=== PATIENT | female | born 1950 | race African-American/Black ===

== ENCOUNTER 2022-08-16 13:35 | Inpatient (IN) | payer MEDICARE, MEDICAID ==
[~2022-08-16] VITALS: Ht 165.1 cm; Wt 70.1 kg
[2022-08-16] VITALS (14 sets, daily range): BP systolic 99–147; BP diastolic 65–86
[2022-08-16] MEDS ORDERED: aspirin 81mg tab.chew PO ONE (14:00)
[2022-08-16] MEDS ORDERED: fentaNYL/PF 50MCG/1 ML 2ML syringe ONE ×2 (14:07→14:29)
[2022-08-16] MEDS ORDERED: heparin 1,000unit/ml 10ml vial 10 ML ONE (14:07)
[2022-08-16] MEDS ORDERED: midazolam 1 mg/ML 2ml injection ONE ×4 (14:07→15:02)
[2022-08-16] MEDS ORDERED: LIDOcaine 1% 30ml preserv. free vial ONE (14:07)
[2022-08-16] MEDS ORDERED: iohexol 350MG/ML 100ml bottle IV ONE ×2 (14:07→14:59)
[2022-08-16 14:14] LABS: BASOPHILS # (AUTO) 0.1 X10'3 (0-0.2); BASOPHILS % (AUTO) 0.8 % (0-1); EOSINOPHILS # (AUTO) 0.1 X10'3 (0-0.9); HEMATOCRIT 40.7 % (35.0-45.0); HEMOGLOBIN 13.4 g/dl (12.0-16.0); LYMPHOCYTES # (AUTO) 1.2 X10'3 (1.1-4.8); LYMPHOCYTES % (AUTO) 17.7 % (21-51); MEAN CORPUSCULAR HEMOGLOBIN 29.3 PG (27.0-31.0); MEAN CORPUSCULAR HGB CONC 32.9 g/dL (33.0-36.5); MEAN PLATELET VOLUME 8.9 FL (7.4-10.4); MONOCYTES # (AUTO) 0.6 X10'3 (0-0.9); MONOCYTES % (AUTO) 8.8 % (2-12); NEUTROPHILS # (AUTO) 4.7 X10'3 (1.8-7.7); NEUTROPHILS % (AUTO) 71.7 % (42-75); PLATELET COUNT 261 X10'3 (140-440); RED BLOOD COUNT 4.58 X10'6 (4.20-5.60); RED CELL DISTRIBUTION WIDTH 14.2 % (11.5-14.5); WHITE BLOOD COUNT 6.6 X10'3 (4.5-11.0)
[2022-08-16 14:20] LABS: APTT 26 SECONDS (22-32)
--- NOTE | 2022-08-16 14:21 | NUR ---
PT WAS CALLED A STROKE ALERT IN THE LOBBY PRIOR TO TRIAGE WAS BROUGHT TO A ROOM FOR EKG AND SENT TO CT SCAN, MD READ OF EKG WAS STEMI. sTEMI ALERT CALLED PATIENT BROUGHT BACK FROM CT PLACED IN ROOM 15 FOR TRIAGE IV PLACEMENT AND MD AT BEDSIDE FOR EVALUATION. [facility] ARRIVED AND REPEAT EKG PERFORMED AND PT SENT TO [facility].
[2022-08-16 14:22] LABS: ALANINE AMINOTRANSFERASE 13 U/L (12-78); ALBUMIN 3.2 G/DL (3.4-5.0); ALBUMIN/GLOBULIN RATIO 0.7 (1.1-1.5); ALKALINE PHOSPHATASE 140 IU/L (46-116); ANION GAP 12 (8-16); ASPARTATE AMINO TRANSFERASE 21 U/L (10-37); BILIRUBIN,TOTAL 0.4 MG/DL (0.1-1.0); BLOOD UREA NITROGEN 17 MG/DL (7-18); BUN/CREATININE RATIO 15.3 (6.6-38.0); CALCIUM 9.3 MG/DL (8.5-10.1); CHLORIDE 99 MMOL/L (99-107); CREATININE 1.11 MG/DL (0.40-0.90); GLUCOSE 224 MG/DL (70-104); POTASSIUM 3.3 MMOL/L (3.5-5.1); SODIUM 136 MMOL/L (135-145); TOTAL CARBON DIOXIDE 24.7 MMOL/L (24-32); TOTAL PROTEIN 7.8 G/DL (6.4-8.2); eGFR 48 ML/MIN
[2022-08-16] MEDS ORDERED: diphenhydrAMINE 50 mg/ml inj ONE (14:46)
[2022-08-16] MEDS ORDERED: proCHLORperazine 10 MG/2 ml inj ONE (14:51)
[2022-08-16] MEDS ORDERED: metoprolol tartrate 1mg/ml inj IV ONE (15:17)
[2022-08-16] MEDS ORDERED: ticagrelor 90mg tablet ONE (15:21)
[2022-08-16] MEDS ORDERED: aspirin 325mg tablet ONE (15:23)
[2022-08-16] MEDS ORDERED: glucagon, human recombinant 1mg kit SUBCUT PRN (15:55)
[2022-08-16] MEDS ORDERED: MESSAGE TO PHARMACY PO ONE (15:55)
[2022-08-16] MEDS ORDERED: dextrose 50%-water 50ml dispensing syringe IV PRN ×2 (15:55)
[2022-08-16] MEDS ORDERED: acetaminophen 325mg tablet PO PRN (15:55)
[2022-08-16] MEDS ORDERED: potassium Cl 20 mEq SR tablet PO PRN (15:55)
[2022-08-16] MEDS ORDERED: potassium Cl 40MEQ/1/2NS 520ml 520 ML IV PRN (15:55)
[2022-08-16] MEDS ORDERED: ondansetron/PF 4mg/2ml inj IV PRN (15:55)
[2022-08-16] MEDS ORDERED: DEXTROSE 15 GM of carb/4 tabs (each vial/BOTTLE has 4 tablets) PO PRN ×2 (15:55)
[2022-08-16] MEDS ORDERED: magnesium hydroxide 30ml (MOM) UD suspension PO PRN (15:55)
[2022-08-16] MEDS ORDERED: mag hydrox/Alum hydrox/simeth 30ml oral suspension PO PRN (15:55)
[2022-08-16] MEDS ORDERED: magnesium 4gm in 100ml NS 100 ML IV PRN (15:55)
[2022-08-16] MEDS ORDERED: proCHLORperazine 10 MG/2 ml inj IV PRN (16:25)
[2022-08-16] MEDS ORDERED: OXAZEpam 15mg capsule PO PRN (16:25)
[2022-08-16] MEDS ORDERED: HYDROcodone/acetaminophen 10/325mg tab PO PRN (16:25)
--- NOTE | 2022-08-16 16:39 | NUR ---
patient arrived from lab support service tech right groin site soft, no hematoma, bleeding or bruising. Site soft upon palpatation. Distal pulses and sensation intact. Patient having difficulty following directions keeping RLE still and straight. leg immobilizer applied.
[2022-08-16 16:59] LABS: HEMOGLOBIN A1C 6.8 % (4.5-6.2)
[2022-08-16] MEDS ORDERED: temazepam 15mg capsule PO PRN (18:10)
--- NOTE | 2022-08-16 18:17 | NUR ---
Small amount of blood noted on groin dressing about the size of a quarter. No hematoma or bruising distal pulses and sensation intact will continue to monitor closely.
--- NOTE | 2022-08-16 18:17 | NUR ---
[place] documentation: I have reviewed and agree with all interventions, assessments performed and documented by Abdelrahman RICHARD. [facility] Medication Administration: For this medication-pass time frame, all medication were reviewed, dispensed, administered and documented per hospital policy by Abdelrahman RICHARD .
--- NOTE | 2022-08-16 18:38 | NUR ---
Problems reprioritized. Patient report given, questions answered & plan of care reviewed with Eri RICHARD. Small l amount of blood noted at groin site . PT found on side at shift change - must lay flat until 8pm . Pt reoriented.
[2022-08-16] MEDS: ticagrelor 90mg tablet PO SCH (20:04)
[2022-08-16] MEDS: metoprolol tartrate 25mg tablet PO SCH (20:08)
[2022-08-16] MEDS: docusate sod 100mg capsule PO SCH (20:09)
[2022-08-16] MEDS: furosemide 20 MG/2 ML vial IV SCH (20:09)
[2022-08-16] MEDS: potassium Cl 20 mEq SR tablet PO PRN (20:50)
[2022-08-16] MEDS: K and/or MAG REPLACEMENT MC SCH (20:51)
[2022-08-16] MEDS: insulin glargine (Lantus) pen - multi-dose SQ SCH (20:58)
--- NOTE | 2022-08-16 22:54 | NUR ---
pt had bleeding from the incision site(R grion) dressing was changed and firm stop applied.site dry and clean.RN unable to reach MD,left voice message.
--- NOTE | 2022-08-16 23:08 | NUR ---
Pts sister María Elena called when RN was busy with pt.RN later called back and gave her update regarding her sisters condition.
[2022-08-17] VITALS (17 sets, daily range): BP systolic 123–159; BP diastolic 64–96
--- NOTE | 2022-08-17 00:23 | NUR ---
Answering service called x2. called back with order to release the firm stop and monitor pt. Addendum: 08/17/22 at 0027 by Tyesha Brownlee RN answering service was called twice by JOSE MANUEL.
[2022-08-17 05:52] LABS: BASOPHILS # (AUTO) 0.1 X10'3 (0-0.2); EOSINOPHILS % (AUTO) 0.7 % (0-6); HEMATOCRIT 42.8 % (35.0-45.0); LYMPHOCYTES # (AUTO) 0.9 X10'3 (1.1-4.8); LYMPHOCYTES % (AUTO) 16.4 % (21-51); MEAN CORPUSCULAR HEMOGLOBIN 29.5 PG (27.0-31.0); MEAN CORPUSCULAR HGB CONC 32.8 g/dL (33.0-36.5); MEAN CORPUSCULAR VOLUME 89.8 FL (78-98); MEAN PLATELET VOLUME 8.8 FL (7.4-10.4); MONOCYTES # (AUTO) 0.6 X10'3 (0-0.9); MONOCYTES % (AUTO) 10.3 % (2-12); NEUTROPHILS # (AUTO) 3.8 X10'3 (1.8-7.7); NEUTROPHILS % (AUTO) 71.6 % (42-75); PLATELET COUNT 221 X10'3 (140-440); RED BLOOD COUNT 4.76 X10'6 (4.20-5.60); RED CELL DISTRIBUTION WIDTH 14.1 % (11.5-14.5); WHITE BLOOD COUNT 5.4 X10'3 (4.5-11.0)
[2022-08-17 06:10] LABS: ALANINE AMINOTRANSFERASE 15 U/L (12-78); ALBUMIN 3.4 G/DL (3.4-5.0); ALBUMIN/GLOBULIN RATIO 0.7 (1.1-1.5); ALKALINE PHOSPHATASE 132 IU/L (46-116); ANION GAP 13 (8-16); ASPARTATE AMINO TRANSFERASE 22 U/L (10-37); BILIRUBIN,TOTAL 0.7 MG/DL (0.1-1.0); BLOOD UREA NITROGEN 12 MG/DL (7-18); BUN/CREATININE RATIO 10.9 (6.6-38.0); CALCIUM 9.9 MG/DL (8.5-10.1); CHLORIDE 100 MMOL/L (99-107); CHOL/HDL RATIO 4.4 (0.00-4.99); CHOLESTEROL 193 MG/DL (0-200); GLUCOSE 163 MG/DL (70-104); HDL CHOLESTEROL 44 MG/DL (35-60); LDL CHOLESTEROL 120 MG/DL (50-100); MAGNESIUM 1.1 MG/DL (1.5-2.4); POTASSIUM 3.6 MMOL/L (3.5-5.1); SODIUM 136 MMOL/L (135-145); TOTAL CARBON DIOXIDE 23.4 MMOL/L (24-32); TOTAL PROTEIN 8.3 G/DL (6.4-8.2); TRIGLYCERIDES 147 MG/DL (20-135); eGFR 49 ML/MIN
--- NOTE | 2022-08-17 06:45 | NUR ---
Problems reprioritized. Patient report given, questions answered & plan of care reviewed with CRISTAL RICHARD.
[2022-08-17] MEDS ORDERED: iohexol 350MG/ML 100ml bottle IV ONE ×2 (07:58→08:52)
[2022-08-17] MEDS ORDERED: midazolam 1 mg/ML 2ml injection ONE (07:58)
[2022-08-17] MEDS ORDERED: fentaNYL/PF 50MCG/1 ML 2ML syringe ONE (07:58)
[2022-08-17] MEDS ORDERED: LIDOcaine 1% 30ml preserv. free vial ONE (07:59)
[2022-08-17] MEDS: K and/or MAG REPLACEMENT MC SCH ×2 (08:00→20:04)
[2022-08-17] MEDS: ticagrelor 90mg tablet PO SCH ×2 (08:00→20:01)
[2022-08-17] MEDS ORDERED: diphenhydrAMINE 50 mg/ml inj ONE (08:40)
[2022-08-17] MEDS ORDERED: proCHLORperazine 10 MG/2 ml inj ONE (08:41)
[2022-08-17] MEDS ORDERED: heparin 1,000unit/ml 10ml vial 10 ML ONE (08:50)
--- NOTE | 2022-08-17 08:59 | NUR ---
Noted pt no wt in EMR at this time; MARILEE notified MD recommends scaled wt this admit. Addendum: 08/17/22 at [address] Amended: Links added.
[2022-08-17] MEDS ORDERED: ticagrelor 90mg tablet ONE (09:49)
[2022-08-17] MEDS: furosemide 20 MG/2 ML vial IV SCH ×2 (11:04→20:02)
[2022-08-17] MEDS: metoprolol tartrate 25mg tablet PO SCH ×2 (11:06→20:02)
[2022-08-17] MEDS: aspirin 81mg tab.chew PO SCH (11:07)
[2022-08-17] MEDS: docusate sod 100mg capsule PO SCH ×2 (11:07→20:02)
--- NOTE | 2022-08-17 15:33 | NUR ---
Attempting to complete med red with home meds. Patient doesn't know all home meds she is taking, her sister Samy had brought all of her meds to the hospital. Patient's sister is not in the hospital currently and has not responded to attempts to contact her. Sister stated she plans to visit patient later today, we will follow up on med rec when Samy is available to discuss home meds.
--- NOTE | 2022-08-17 16:25 | NUR ---
After completing the MRI screening form with the patient I discussed medical history with family members and found patient has metal rods in her spine that she had forgot to inform me of. I am redoing the screening form with the new data and submitting it to MRI.
[2022-08-17] MEDS ORDERED: TIOT4MIS5 PO (16:37)
[2022-08-17] MEDS ORDERED: MELA10TA2 PO (16:37)
[2022-08-17] MEDS ORDERED: TRAZ-251 PO (16:37)
[2022-08-17] MEDS ORDERED: METF-436 PO (16:37)
[2022-08-17] MEDS ORDERED: AMLO10TA PO (16:37)
[2022-08-17] MEDS ORDERED: HYDR100T27 PO (16:37)
[2022-08-17] MEDS ORDERED: FAMO40TA58 PO (16:37)
[2022-08-17] MEDS ORDERED: ATOR10TA70 PO (16:37)
[2022-08-17] MEDS ORDERED: MELO-102 PO (16:37)
[2022-08-17] MEDS ORDERED: GLIP10TA11 PO (16:37)
[2022-08-17] MEDS ORDERED: ALBU90AE INH (16:37)
--- NOTE | 2022-08-17 18:19 | NUR ---
Problems reprioritized. Patient report given, questions answered & plan of care reviewed with Eri RICHARD. Patient resting in bed vitals stable
[2022-08-17] MEDS ORDERED: METO100T14 PO (19:10)
[2022-08-17] MEDS ORDERED: GABA300C PO (19:13)
[2022-08-17] MEDS ORDERED: GABA-530 PO (19:13)
[2022-08-17] MEDS: magnesium Cl slow-release 64mg tablet PO PRN (20:01)
[2022-08-17] MEDS: insulin glargine (Lantus) pen - multi-dose SQ SCH (22:15)
[2022-08-18 02:00] VITALS: BP 126/78
[2022-08-18] MEDS: HYDROcodone/acetaminophen 5mg/325mg tablet PO PRN ×4 (02:37→16:32)
[2022-08-18 06:22] LABS: BASOPHILS % (AUTO) 0.7 % (0-1); EOSINOPHILS % (AUTO) 0.7 % (0-6); HEMATOCRIT 34.7 % (35.0-45.0); HEMOGLOBIN 11.7 g/dl (12.0-16.0); LYMPHOCYTES # (AUTO) 0.9 X10'3 (1.1-4.8); LYMPHOCYTES % (AUTO) 16.4 % (21-51); MEAN CORPUSCULAR HEMOGLOBIN 29.5 PG (27.0-31.0); MEAN CORPUSCULAR HGB CONC 33.6 g/dL (33.0-36.5); MEAN CORPUSCULAR VOLUME 87.9 FL (78-98); MEAN PLATELET VOLUME 9.1 FL (7.4-10.4); MONOCYTES # (AUTO) 0.6 X10'3 (0-0.9); MONOCYTES % (AUTO) 10.5 % (2-12); NEUTROPHILS # (AUTO) 4.1 X10'3 (1.8-7.7); NEUTROPHILS % (AUTO) 71.7 % (42-75); PLATELET COUNT 228 X10'3 (140-440); RED BLOOD COUNT 3.95 X10'6 (4.20-5.60); WHITE BLOOD COUNT 5.7 X10'3 (4.5-11.0)
--- NOTE | 2022-08-18 06:33 | NUR ---
Problems reprioritized. Patient report given, questions answered & plan of care reviewed with Doris RICHARD.
[2022-08-18 06:37] LABS: ALANINE AMINOTRANSFERASE 14 U/L (12-78); ALBUMIN 3.2 G/DL (3.4-5.0); ALBUMIN/GLOBULIN RATIO 0.7 (1.1-1.5); ALKALINE PHOSPHATASE 125 IU/L (46-116); ANION GAP 10 (8-16); ASPARTATE AMINO TRANSFERASE 20 U/L (10-37); BILIRUBIN,TOTAL 0.5 MG/DL (0.1-1.0); BLOOD UREA NITROGEN 15 MG/DL (7-18); BUN/CREATININE RATIO 13.2 (6.6-38.0); CALCIUM 8.9 MG/DL (8.5-10.1); CHLORIDE 100 MMOL/L (99-107); CREATININE 1.14 MG/DL (0.40-0.90); GLUCOSE 156 MG/DL (70-104); MAGNESIUM 1.1 MG/DL (1.5-2.4); POTASSIUM 3.4 MMOL/L (3.5-5.1); SODIUM 136 MMOL/L (135-145); TOTAL CARBON DIOXIDE 26.2 MMOL/L (24-32); TOTAL PROTEIN 7.5 G/DL (6.4-8.2); eGFR 47 ML/MIN
--- NOTE | 2022-08-18 06:49 | NUR ---
Patient in room PCU 3027. I have received report from Tyesha RICHARD and had the opportunity to ask questions and assume patient care.Patient resting in bed in no acute distress.
[2022-08-18 07:00] VITALS: BP 130/73
[2022-08-18] MEDS: furosemide 20 MG/2 ML vial IV SCH ×2 (08:00→08:35)
[2022-08-18] MEDS ORDERED: atorvastatin 20mg tablet PO SCH (08:00)
[2022-08-18] MEDS: docusate sod 100mg capsule PO SCH (08:35)
[2022-08-18] MEDS: ticagrelor 90mg tablet PO SCH (08:35)
[2022-08-18] MEDS: magnesium Cl slow-release 64mg tablet PO PRN (08:36)
[2022-08-18] MEDS: aspirin 81mg tab.chew PO SCH (08:36)
[2022-08-18] MEDS: potassium Cl 20 mEq SR tablet PO PRN ×2 (08:36→16:32)
[2022-08-18] MEDS: metoprolol tartrate 25mg tablet PO SCH (08:37)
[2022-08-18] MEDS: insulin Lispro (HumaLOG) vial - multi-dose SQ SCH ×2 (08:41→13:18)
[2022-08-18] MEDS ORDERED: furosemide 20MG tablet PO ONE (09:20)
[2022-08-18] MEDS ORDERED: TICA90TA PO (09:34)
[2022-08-18] MEDS ORDERED: ASPI81TA53 PO (09:34)
[2022-08-18] MEDS ORDERED: ATOR20TA66 PO (09:34)
[2022-08-18 11:00] VITALS: BP 127/71
--- NOTE | 2022-08-18 13:20 | NUR ---
Patient family picked up brillinta and has it for patient when she discharges.
--- NOTE | 2022-08-18 14:33 | NUR ---
PAGER ID: [phone] MESSAGE: Dileep [id number] was taken down to MRI and on screening said she didn't have claustrophobia. She is unable to get in the MRI. Can I get an order for Ativan prescribed for her Abdelrahman [id number]
[2022-08-18] MEDS ORDERED: LORazepam 2 mg/ml vial IV ONE (14:50)
--- NOTE | 2022-08-18 14:50 | NUR ---
ORDERS FOR 1MG ATIVAN PUT IN PER DR. MIMS.
[2022-08-18 15:00] VITALS: BP 111/67
[2022-08-18] MEDS ORDERED: LORazepam 1 MG tablet PO ONE (15:00)
--- NOTE | 2022-08-18 17:14 | NUR ---
Page Sent promotional table spacer PAGER ID: [phone] MESSAGE: [id number] Dileep. MRI was limited study patient unable to tolerate MRI for full length. Report is available in [employer]. Yessy/Abdelrahman @[phone] (136 character message out of a maximum of [phone])
[2022-08-18] MEDS ORDERED: LOP25T PO (17:52)
--- NOTE | 2022-08-18 18:26 | NUR ---
Problems reprioritized. Patient report given, questions answered & plan of care reviewed with Kymberly RICHARD. Patient in room with daughter and granddaughter ready for DC
--- NOTE | 2022-08-26 09:48 | NUR ---
Case Management DC follow up: Spoke with Patient via telephone. S/P: Patient Reports: Denies :Acute/continuous CP, emergent SOB, resp distress, dyspnea, N/V, weakness, vertigo, syncope episodes, orthostatic hypotension, MONTOYA, blurry vision, new s/s of stroke/BE-FAST, dysphagia, dysuria, hematuria, retention, abdominal pain/distention, hematochezia, melena, unexplained bruising, bleeding, fever, chills. Verbalizes compliance with aftercare; taking and recording her blood pressure daily.Verbalizes her daughter- in-law helps her with her medications, and takes good care of her.Verbalizes understanding of new Rx:, why prescribed;continues/resumes current Rx as ordered.Verbalizes her right groin site has bruising; however, denies any s/s of infection.Verbalizes understanding of s/s that warrant a -/ER visit for further evaluation.Verbalizes she has a follow up appointment with her PCP 08/30/22.Verbalizes the care at [facility] was phenomenal, everyone was so attentive.Needs met, questions/concerns addressed at DC. No further questions/concerns regarding recent hospital stay and/or DC status at this time.
== END 2022-08-18 18:45 | disposition home or self-care (01) | DRG 246 ==
LOC: ER 13:35 → PCU 3S 16:04
PROVIDERS: ADMIT Internal Medicine Interventional Cardiology; ATTEND Internal Medicine Interventional Cardiology
PROC: 027034Z Dilation of Coronary Artery, One Artery with Drug-eluting Intraluminal Device, Percutaneous Approach (ICD-10-PCS; principal; 2022-08-16)
PROC: 027034Z Dilation of Coronary Artery, One Artery with Drug-eluting Intraluminal Device, Percutaneous Approach (ICD-10-PCS; 2022-08-17)
PROC: 4A023N7 Measurement of Cardiac Sampling and Pressure, Left Heart, Percutaneous Approach (ICD-10-PCS; 2022-08-17)
PROC: B2111ZZ Fluoroscopy of Multiple Coronary Arteries using Low Osmolar Contrast (ICD-10-PCS; 2022-08-17)
PROC: B2151ZZ Fluoroscopy of Left Heart using Low Osmolar Contrast (ICD-10-PCS; 2022-08-17)
DX: I21.19 ST elevation (STEMI) myocardial infarction involving other coronary artery of inferior wall (principal); I63.9 Cerebral infarction, unspecified; I13.0 Hypertensive heart and chronic kidney disease with heart failure and stage 1 through stage 4 chronic kidney disease, or unspecified chronic kidney disease; E11.22 Type 2 diabetes mellitus with diabetic chronic kidney disease; E78.5 Hyperlipidemia, unspecified; R29.810 Facial weakness; F17.210 Nicotine dependence, cigarettes, uncomplicated; E87.6 Hypokalemia; I25.10 Atherosclerotic heart disease of native coronary artery without angina pectoris; I50.9 Heart failure, unspecified; N18.30 Chronic kidney disease, stage 3 unspecified; Z79.82 Long term (current) use of aspirin; Z79.899 Other long term (current) drug therapy; Z83.3 Family history of diabetes mellitus; Z88.5 Allergy status to narcotic agent; Z90.49 Acquired absence of other specified parts of digestive tract
CPT/HCPCS: 93306; 93454; 96374; 99285; C9606; 36415; 70450; 70551; 71045; 80053; 80061; 82948; 83036; 83735; 83880; 84484; 85025; 85610; 85730; 92508; 92616; 93005; 93880; 97161; 97530; 99152; 99153; A4620; A6258; C1725; C1751; C1760; C1769; C1874; G0378; J0780; J1200; J1644; J1815; J1940; J2250; J3010; J3490; J7030; Q9967